=== PATIENT | male | born 1950 | race Caucasian/White ===

== ENCOUNTER 2021-01-04 17:20 | Emergency (ER) | payer OTHER ==
[~2021-01-04] VITALS: Ht 175.3 cm; Wt 75.0 kg
[2021-01-04 17:40] VITALS: BP 163/93
--- NOTE | 2021-01-04 17:41 | NUR ---
biba from home for MGLF when getting up from toilet. ETOH+ today. L knee abrasion, no other trauma/midline cervical tenderness. neuro intact, resps even and unlabored, vss, nadn. eric Monk at bedside for eval
[2021-01-04 18:07] LABS: BASOPHILS % (AUTO) 1 % (0-1); EOSINOPHILS % (AUTO) 1 % (1-7); LYMPHOCYTES % (AUTO) 30 % (22-44); MEAN CORPUSCULAR HEMOGLOBIN 33.4 pg (27.5-34.5); MEAN CORPUSCULAR HGB CONC 34.6 g/dL (33.2-36.2); MEAN PLATELET VOLUME 7.8 fL (7.4-10.4); MONOCYTES % (AUTO) 12 % (2-9); NEUTROPHILS % (AUTO) 57 % (42-75); PLATELET COUNT 263 x10^3/uL (130-400); RED BLOOD COUNT 4.96 x10^6/uL (4.38-5.82); RED CELL DISTRIBUTION WIDTH 12.5 % (9.4-14.8)
[2021-01-04 18:13] LABS: ALANINE AMINOTRANSFERASE 107 U/L (12-78); ALBUMIN 3.5 g/dL (3.4-5.0); ANION GAP 13 mmol/L (5-15); CHLORIDE 96 mmol/L (98-107)
[2021-01-04 18:16] LABS: ALKALINE PHOSPHATASE 82 U/L (45-117); BILIRUBIN,TOTAL 0.4 mg/dL (0.2-1.0); TOTAL PROTEIN 8.4 g/dL (6.4-8.2)
--- NOTE | 2021-01-04 18:47 | NUR ---
pt able to ambulate with steady gait. dc instructions reviewed, pt verbalized undertsanding. accompanied by to dc
== END 2021-01-04 18:55 | disposition home or self-care (01) ==
LOC: ED 17:50
DX: S80.212A Abrasion, left knee, initial encounter (principal); S09.90XA Unspecified injury of head, initial encounter; F10.220 Alcohol dependence with intoxication, uncomplicated; I10 Essential (primary) hypertension; F17.200 Nicotine dependence, unspecified, uncomplicated; Z91.19 Patient's noncompliance with other medical treatment and regimen; Y90.0 Blood alcohol level of less than 20 mg/100 ml; W18.30XA Fall on same level, unspecified, initial encounter; Y93.89 Activity, other specified; Y92.009 Unspecified place in unspecified non-institutional (private) residence as the place of occurrence of the external cause; Y99.8 Other external cause status
CPT/HCPCS: 36415; 80053; 80320; 85025; 99283; G0480